=== PATIENT | male | born 1955 | race Caucasian/White ===

== ENCOUNTER 2020-01-09 15:09 | Emergency (ER) | payer OTHER, SELFPAY ==
--- NOTE | ~2020-01-09 | XR_ITS ---
EXAMINATION: XR finger 1st LT min 2V DATE: 01/09/2020 15:47 INDICATION: Left thumb injury. TECHNIQUE: 3 views of left thumb were obtained. COMPARISON: None. FINDINGS: Bone alignment is normal. No fracture. There is moderate osteoarthritis of first metacarpop halangeal joint and first interphalangeal joint and mild osteoarthritis of first carpometacarpal join t. IMPRESSION: 1. Polyarticular osteoarthritis. Reviewed, dictated and finalized at location A. MANAGER
[2020-01-09 15:20] VITALS: BP 123/69; PULSE 74; RESP 16; TEMP 36.1; O2SAT 100
--- NOTE | 2020-01-09 15:37 | ED.WOUNDLAC ---
HPI - Wound/Laceration General Chief Complaint: Wound/Laceration Stated Complaint: left thumb injury Time Seen by Provider: 01/09/20 15:30 Source: patient and RN notes reviewed Mode of arrival: ambulatory Limitations: no limitations History of Present Illness HPI narrative: Patient presents today complaining of a laceration/crush injury to his left first finger that was sustained while working at [employer] at 1510 this afternoon. States it was crushed in a lift gate. Currently rates his pain 4/10 and has tried no [id number] interventions prior to arrival. He is up-to-date on his tetanus vaccine. Does report some numbness to the tip of the affected finger. Related Data Home Medications Medication Instructions Recorded Confirmed methotrexate sodium 20 mg PO WEEKLY 01/09/20 01/09/20 Allergies Allergy/AdvReac Type Severity Reaction Status Date / Time acetaminophen [From Tylenol] Allergy Mild Rash Verified 01/09/20 16:58 Review of Systems Review of Systems: Narrative: CONSTITUTIONAL: Denies body aches, fever, chills, or sweats. EYES: Denies visual changes, redness, or discharge. ENT: Denies rhinorrhea, congestion, sore throat, or otalgia. CARDIOVASCULAR: Denies chest pain, palpitations, or edema. RESPIRATORY: Denies cough or dyspnea. GASTROINTESTINAL: Denies abdominal pain, nausea, vomiting, or diarrhea. GENITOURINARY: Denies dysuria or hematuria. SKIN: Denies rash, itching. + Left first finger laceration MUSCULOSKELETAL: Denies back pain, joint pain, or myalgia. NEUROLOGIC: Denies headache, numbness, tingling, or weakness. PSYCH: Denies depression or anxiety. [facility] Past Medical History Medical History (Updated 01/09/20 @ 16:48 by Genevieve Rodrigues, [facility], ) History of prostate cancer Surgical History Surgical History (Updated 01/09/20 @ 15:40 by Genevieve Rodrigues, [facility], ) History of prostatectomy Comments At time of signature, I have reviewed and agree with nursing past medical, surgical, social and family history unless otherwise noted. Please see nursing chart for further information. There is no relevant family history pertinent to the presenting complaint Exam Narrative: Exam Narrative: GENERAL: Well-appearing, well-nourished, and in no acute distress. HEAD: Normocephalic, atraumatic. EYES: EOMI. No redness or drainage. Conjunctivae normal. ENT: Mucous membranes pink and moist. NECK: Normal AROM. CHEST: No respiratory distress. EXTREMITIES: Left thumb: 5.5cm stellate laceration to the tip of the finger, extending into the fingernail. Distal sensation is intact. Capillary refill normal. Full AROM of the affected finger. SKIN: Warm, dry, no rash. Capillary refill normal. Normal skin turgor. NEURO: No focal deficits. Alert and oriented x3. Gait steady. PSYCH: Normal affect. No signs of depression or anxiety. Course Vital Signs Vital signs: Vital Signs Temperature 96.9 F L 01/09/20 15:20 Pulse Rate 74 01/09/20 15:20 Respiratory Rate 16 01/09/20 15:20 Blood Pressure 123/69 01/09/20 15:20 Pulse Oximetry 100 01/09/20 15:20 Temperature 96.9 F L 01/09/20 15:20 Pulse Rate 74 01/09/20 15:20 Respiratory Rate 16 01/09/20 15:20 Blood Pressure 123/69 01/09/20 15:20 Pulse Oximetry 100 01/09/20 15:20 Procedures Laceration Laceration 1: Date: 01/09/20 Time: 16:15 Site: hand Side (If applicable): left Size (cm): 5 Description: stellate Depth: simple, single layer Local Anesthetic: lidocaine 1% and none (digital block) ====== Skin Level ====== Skin layer closed with: nylon Size (cm): 5-0 Number of sutures: 8 Technique: simple, interrupted ====== Subcutaneous Layer ====== ====== Muscle Layer ====== ====== Tendon Layer ====== Dressing: Small portion of loose fingernail was removed from nail bed. Wound dressed with nonadherent dressing by RN. Marcos
== END 2020-01-09 16:55 | disposition home or self-care (01) ==
PROVIDERS: Emergency Provider Nurse Practitioner; PCP Family Medicine
DX: S61.112A Laceration without foreign body of left thumb with damage to nail, initial encounter (principal); W31.89XA Contact with other specified machinery, initial encounter; Y99.0 Civilian activity done for income or pay; Z85.46 Personal history of malignant neoplasm of prostate; Z90.79 Acquired absence of other genital organ(s)
CPT/HCPCS: 12002; 73140; 99213; G0463